=== PATIENT | male | born 1940 | race Two or more races ===

== ENCOUNTER 2019-07-13 11:34 | Outpatient (CLI) | payer OTHER | END 2019-07-13 15:30 | disposition home or self-care (01) | LOC: RAD 11:34 | DX: M17.11 Unilateral primary osteoarthritis, right knee (principal); M17.2 Bilateral post-traumatic osteoarthritis of knee; M54.2 Cervicalgia ==

== ENCOUNTER 2019-08-15 01:08 | Emergency (ER) | payer OTHER ==
[~2019-08-15] VITALS: Ht 167.6 cm; Wt 81.2 kg
[2019-08-15] MEDS ORDERED: ENALAPRIL MALEA10 MG PO (01:15)
[2019-08-15] MEDS ORDERED: SIMVASTATIN5 MG PO (01:16)
[2019-08-15] MEDS ORDERED: MECLIZINE HCL25 MG PO (01:20)
== END 2019-08-15 02:31 | disposition home or self-care (01) ==
LOC: ER 01:08
DX: M54.2 Cervicalgia (principal)

== ENCOUNTER 2021-08-07 12:28 | Outpatient (CLI) | payer OTHER ==
[~2021-08-07 12:28] MED LIST: ENALAPRIL MALEA10 MG PO; MECLIZINE HCL25 MG PO; SIMVASTATIN5 MG PO
== END 2021-08-07 12:29 | disposition home or self-care (01) ==
LOC: TOM 12:28
PROVIDERS: ATTEND Emergency Medicine Pediatric Emergency Medicine
DX: M50.30 Other cervical disc degeneration, unspecified cervical region (principal); M54.50 Low back pain, unspecified; E03.9 Hypothyroidism, unspecified; E78.9 Disorder of lipoprotein metabolism, unspecified; M81.0 Age-related osteoporosis without current pathological fracture; Z95.0 Presence of cardiac pacemaker; G90.01 Carotid sinus syncope; I49.9 Cardiac arrhythmia, unspecified

== ENCOUNTER 2021-08-19 06:16 | Emergency (ER) | payer OTHER ==
[~2021-08-19] VITALS: Ht 185.4 cm; Wt 79.4 kg
[2021-08-19] MEDS ORDERED: ELIQUIS2.5 MG PO (06:26)
== END 2021-08-19 12:32 | disposition home or self-care (01) ==
LOC: ER 06:16
DX: N34.2 Other urethritis (principal); R35.0 Frequency of micturition

== ENCOUNTER 2022-07-27 15:39 | Inpatient (IN) | payer OTHER ==
[~2022-07-27] VITALS: Ht 182.9 cm; Wt 80.7 kg
[~2022-07-27 15:39] MED LIST changes: +ELIQUIS2.5 MG PO
--- NOTE | 2022-07-27 15:55 | NUR ---
PATIENT IS RECIEVED SAYING THAT HE HAS STOMACH ACHES, AND CONSTANT DIZZINESS SINCE THIS MORNING.
--- NOTE | 2022-07-27 16:52 | NUR ---
PTE EVALUADO POR MD HIGHTOWER ORDENA TX MED SE EDUCA A PTE SOBRE EL MSIMO Y REFIER EENTENDER. SE EJECUTAN ORDENES BAJO MEIDDAS ACEPTICAS.
[2022-07-29] MEDS ORDERED: HYOSCYAMINE0.125 M1 PO (06:29)
[2022-07-29] MEDS ORDERED: PEPCID AC20 MG PO (06:29)
== END 2022-07-29 09:51 | disposition home or self-care (01) | DRG 439 ==
LOC: ER 15:39 → MEDI 21:12
PROVIDERS: ADMIT Internal Medicine; ATTEND Internal Medicine
PROC: BW21ZZZ Computerized Tomography (CT Scan) of Abdomen and Pelvis (ICD-10-PCS; principal; 2022-07-27)
DX: K85.80 Other acute pancreatitis without necrosis or infection (principal); N17.8 Other acute kidney failure; Z20.822 Contact with and (suspected) exposure to COVID-19; I10 Essential (primary) hypertension; E78.5 Hyperlipidemia, unspecified

== ENCOUNTER → 2022-08-14 | Emergency (ER) | payer OTHER ==
[~2022-08-14] VITALS: Ht 185.4 cm; Wt 81.6 kg
[~2022-08-14] MED LIST changes: +ARICEPT5 MG PO; +BUSPIRONE HCL5 MG PO; +CHLORTHALIDONE25 MG PO; +CLONAZEPAM0.5 MG PO; +ELIQUIS5 MG PO; +HYOSCYAMINE0.125 M1 PO; +MECLIZINE HCL25 M1 PO; +MEMANTINE HCL5 MG PO; +OLANZAPINE-FLU1 EAC4 PO; +PEPCID AC20 MG PO; +VASOTEC20 M1 PO; +ZOCOR80 MG PO
== END | disposition home or self-care (01) ==
LOC: ER 10:07
DX: F03.94 Unspecified dementia, unspecified severity, with anxiety (principal); E78.00 Pure hypercholesterolemia, unspecified; I10 Essential (primary) hypertension

== ENCOUNTER 2022-10-19 08:08 | Outpatient (CLI) | payer OTHER | END 2022-10-19 08:09 | disposition home or self-care (01) | LOC: NUCLEAR 08:08 | PROVIDERS: ATTEND Surgery | DX: I73.9 Peripheral vascular disease, unspecified (principal) ==